=== PATIENT | female | born 1975 | race Caucasian/White ===

== ENCOUNTER 2022-05-08 09:18 | Emergency (ER) | payer SELFPAY ==
[~2022-05-08] VITALS: Ht 172.7 cm; Wt 126.1 kg
[2022-05-08 11:56] VITALS: BP 109/66
== END 2022-05-08 12:27 | disposition left against medical advice (07) ==
LOC: ER 09:21
DX: R05.9 Cough, unspecified (principal); R19.7 Diarrhea, unspecified
CPT/HCPCS: 87636; 99283